=== PATIENT | male | born 1980 | race Two or more races ===

== ENCOUNTER 2020-10-19 23:13 | Emergency (ER) | payer BC, OTHER ==
[~2020-10-19] VITALS: Ht 185.4 cm; Wt 122.5 kg
[2020-10-20] MEDS ORDERED: diazePAM 5 MG TAB PO ONE ×2 (01:30→05:45)
[2020-10-20] MEDS ORDERED: LIDOCAINE 5% TOPICAL PATCH TOP ONE (04:00)
[2020-10-20] MEDS ORDERED: IBUPROFEN 800 MG TAB PO ONE (04:00)
[2020-10-20] MEDS ORDERED: HYDROcodone-ACET 10/325MG TAB PO ONE ×3 (05:45→21:45)
[2020-10-20] MEDS ORDERED: CARISOPRODOL 350 MG TAB PO ONE ×2 (11:45→17:45)
[2020-10-20] MEDS ORDERED: SODIUM CHLORIDE 0.9% 1,000 ML IV ONE (11:45)
[2020-10-20 13:34] LABS: Basophils # (auto) 0 10 ^3/uL (0-0.2); Basophils % (auto) 0.5 % (0.0-2.0); Eosinophils # (auto) 0 10 ^3/uL (0-0.8); Eosinophils % (auto) 0.2 % (0.0-7.0); Hematocrit 43.5 % (41.0-53.0); Hemoglobin 14.9 g/dL (13.5-17.5); Lymphocytes # (auto) 1.5 10 ^3/uL (0.4-5.4); Lymphocytes % (auto) 15.6 % (10.0-50.0); Mean Corpuscular Hemoglobin 28.5 pg (28.0-32.0); Mean Corpuscular Hgb Conc. 34.4 g/dL (32.0-36.0); Mean Corpuscular Volume 82.9 fL (80.0-100.0); Monocytes # (auto) 0.6 10 ^3/uL (0-1.3); Monocytes % (auto) 6.2 % (0.0-12.0); Neutrophils # (auto) 7.2 10 ^3/uL (1.6-8.6); Neutrophils % (auto) 77.5 % (37.0-80.0); Nucleated Red Blood Cells % 0.2 %; Red Blood Cells 5.25 10^6/uL (4.5-5.90); Red Cell Distribution Width 14.1 % (11.8-14.3); White Blood Cell 9.3 10^3/uL (4.4-10.8)
[2020-10-20 13:55] LABS: Albumin 3.7 g/dL (3.4-5.0); Anion Gap 6 (5-15); Blood Urea Nitrogen 9 mg/dL (7-18); Calcium 8.9 mg/dL (8.5-10.1); Carbon Dioxide 24 mmol/L (21-32); Chloride 109 mmol/L (98-107); Glucose 86 mg/dL (74-106); Sodium 139 mmol/L (136-145)
[2020-10-20 14:00] LABS: Alanine Aminotransferase 20 U/L (16-61); Alkaline Phosphatase 86 U/L (45-117); Aspartate Aminotransferase 11 U/L (15-37); BUN/Creatinine Ratio 12.3; Bilirubin, Total 0.4 mg/dL (0.2-1.0); GFR African American 153 mL/min; GFR Non-African American 126 mL/min; Total Protein 7.3 g/dL (6.4-8.2)
[2020-10-21] MEDS ORDERED: diazePAM 5 MG TAB PO ONE (02:15)
[2020-10-21 04:54] VITALS: BP 133/81
== END 2020-10-21 05:19 | disposition short-term general hospital (02) ==
LOC: ER 23:13 → EDBD 23:13 → ER 10-21 05:19
DX: M54.5 Low back pain (principal); G89.29 Other chronic pain; Z20.822 Contact with and (suspected) exposure to COVID-19
CPT/HCPCS: 36415; 71045; 72131; 80053; 84484; 85025; 87426; 96360

== ENCOUNTER 2023-05-13 10:57 | Emergency (ER) | payer BC ==
[~2023-05-13] VITALS: Ht 182.9 cm; Wt 80.0 kg
[2023-05-13 11:46] LABS: Basophils # (auto) 0 10 ^3/uL (0-0.2); Basophils % (auto) 0.7 % (0.0-2.0); Eosinophils # (auto) 0 10 ^3/uL (0-0.8); Eosinophils % (auto) 0.1 % (0.0-7.0); Hematocrit 40.6 % (41.0-53.0); Hemoglobin 13.7 g/dL (13.5-17.5); Lymphocytes # (auto) 0.6 10 ^3/uL (0.4-5.4); Lymphocytes % (auto) 18.6 % (10.0-50.0); Mean Corpuscular Hemoglobin 27.9 pg (28.0-32.0); Mean Corpuscular Hgb Conc. 33.7 g/dL (32.0-36.0); Mean Corpuscular Volume 82.9 fL (80.0-100.0); Monocytes # (auto) 0.4 10 ^3/uL (0-1.3); Monocytes % (auto) 12.5 % (0.0-12.0); Neutrophils # (auto) 2.3 10 ^3/uL (1.6-8.6); Neutrophils % (auto) 68.1 % (37.0-80.0); Nucleated Red Blood Cells % 0.6 %; Red Cell Distribution Width 13.4 % (11.8-14.3); White Blood Cell 3.3 10^3/uL (4.4-10.8)
[2023-05-13 12:02] LABS: Bilirubin, Total 0.4 mg/dL (0.2-1.0); Total Protein 6.4 g/dL (5.7-8.2)
[2023-05-13 12:52] LABS: Alanine Aminotransferase 23 U/L (7-40); Albumin 3.8 g/dL (3.2-4.8); Alkaline Phosphatase 66 U/L (46-116); Anion Gap 4 (5-15); Aspartate Aminotransferase 27 U/L (13-40); BUN/Creatinine Ratio 5.8 (10.0-20.0); Blood Urea Nitrogen 6 mg/dL (9-23); Calcium 8.8 mg/dL (8.5-10.1); Carbon Dioxide 28 mmol/L (20-30); Chloride 101 mmol/L (98-107); Glucose 107 mg/dL (74-106); Sodium 133 mmol/L (136-145)
[2023-05-13 15:03] LABS: COVID19 ANTIGEN SOFIA FIA NEGATIVE (NEGATIVE)
[2023-05-13 16:05] VITALS: BP 152/74; PULSE 95; RESP 18; O2SAT 100
[2023-05-13 16:40] LABS: Urine Bacteria NONE SEEN /hpf (None Seen); Urine Blood Negative /uL (Negative); Urine Clarity Clear (Clear); Urine Color Yellow (Yellow); Urine Protein, UAD 1+ (Negative); Urine Specific Gravity 1.023 (1.001-1.035); Urine Urobilinogen Normal (Negative); Urine WBC 2 /hpf (0 - 3); Urine pH 6.5 (5.0-8.0)
== END 2023-05-13 16:09 | disposition home or self-care (01) ==
LOC: ER 10:57
DX: R42 Dizziness and giddiness (principal); Z20.822 Contact with and (suspected) exposure to COVID-19
CPT/HCPCS: 36415; 70450; 80053; 81001; 82962; 85025; 87426; 93005

== ENCOUNTER 2023-09-19 16:49 | Emergency (ER) | payer BC ==
[~2023-09-19] VITALS: Ht 182.9 cm; Wt 125.1 kg
[2023-09-19 17:30] VITALS: PULSE 79; RESP 14; O2SAT 98
[2023-09-19] MEDS: SODIUM CHLORIDE 0.9% 1,000 ML IVB ONE (17:36)
[2023-09-19] MEDS: LORazepam 2MG/ML-1ML VIAL IV ONE (17:37)
[2023-09-19 17:59] LABS: Basophils # (auto) 0 10 ^3/uL (0-0.2); Basophils % (auto) 0.4 % (0.0-2.0); Eosinophils # (auto) 0.1 10 ^3/uL (0-0.8); Eosinophils % (auto) 0.8 % (0.0-7.0); Hematocrit 39.7 % (41.0-53.0); Lymphocytes # (auto) 1.9 10 ^3/uL (0.4-5.4); Lymphocytes % (auto) 25.3 % (10.0-50.0); Mean Corpuscular Hemoglobin 28.8 pg (28.0-32.0); Mean Corpuscular Hgb Conc. 35.3 g/dL (32.0-36.0); Mean Corpuscular Volume 81.7 fL (80.0-100.0); Monocytes # (auto) 0.4 10 ^3/uL (0-1.3); Monocytes % (auto) 5.9 % (0.0-12.0); Neutrophils # (auto) 5.1 10 ^3/uL (1.6-8.6); Neutrophils % (auto) 67.6 % (37.0-80.0); Nucleated Red Blood Cells % 0.1 %; Red Blood Cells 4.86 10^6/uL (4.5-5.90); Red Cell Distribution Width 13.4 % (11.8-14.3); White Blood Cell 7.5 10^3/uL (4.4-10.8)
[2023-09-19 18:11] LABS: Acetaminophen < 2.0 UG/ML (10.0-20.0)
[2023-09-19 18:12] LABS: Alanine Aminotransferase 19 U/L (7-40); Albumin 4.3 g/dL (3.2-4.8); Alkaline Phosphatase 88 U/L (46-116); Anion Gap 7 (5-15); Aspartate Aminotransferase 14 U/L (13-40); BUN/Creatinine Ratio 13.3 (10.0-20.0); Bilirubin, Total 0.4 mg/dL (0.2-1.0); Blood Alcohol < 3.0 mg/dL (<10); Blood Urea Nitrogen 14 mg/dL (9-23); Calcium 9.6 mg/dL (8.7-10.4); Carbon Dioxide 27 mmol/L (20-30); Chloride 105 mmol/L (98-107); Glucose 105 mg/dL (74-106); Potassium 3.5 mmol/L (3.5-5.1); Sodium 139 mmol/L (136-145); Total Protein 6.8 g/dL (5.7-8.2)
[2023-09-19 18:40] LABS: Salicylate < 3.0 mg/dL (2.8-20.0)
[2023-09-19 19:30] VITALS: PULSE 75; RESP 10; TEMP 98.5; O2SAT 96
[2023-09-19 19:44] LABS: Amphetamine Screen, Urine Neg (NEGATIVE); Barbiturate Scree,Urine Neg (NEGATIVE); Benzodiazephine Screen, Urine Neg (NEGATIVE)
[2023-09-19 19:45] LABS: Cannabinoid Screen, Urine Neg (NEGATIVE); Cocaine Screen, Urine Neg (NEGATIVE); Opiate Scree,Urine Neg (NEGATIVE); Phencyclidine Screen, Urine Neg (NEGATIVE)
[2023-09-19 20:00] VITALS: BP 129/83; PULSE 76; RESP 14; O2SAT 93
== END 2023-09-19 20:31 | disposition home or self-care (01) ==
LOC: ER 16:49
DX: R42 Dizziness and giddiness (principal); T40.2X5A Adverse effect of other opioids, initial encounter; Y92.89 Other specified places as the place of occurrence of the external cause
CPT/HCPCS: 36415; 71045; 80053; 80307; 80320; 80329; 85025; 96360; 99284; J7030

== ENCOUNTER 2025-01-06 08:02 | Emergency (ER) | payer BC ==
[~2025-01-06] VITALS: Ht 182.9 cm; Wt 115.6 kg
--- NOTE | 2025-01-06 08:26 | ED.PDOC ---
GI ASSESSMENT HPI Comments This is a 44 year old male presenting to the ED with chief complaint of N/V. Patient reports that he has been experiencing persistent nausea with associated vomiting, body aches, and chills since Friday. Patient relays that he has been feeling dehydrated. Patient denies any sick contacts, abdominal pain, dizziness, fever, chills, chest pain, or diarrhea. Chief Complaint: Nausea/Vomiting Time Seen by MD: 08:24 Primary Care Provider: TOSHA Aguilar Notes: Nurses Notes, Medications, Allergies Allergies: Coded Allergies: NO KNOWN ALLERGIES (Unverified , 10/19/20) Information Source: Patient Mode of Arrival: Ambulatory Timing: Days Duration: Since onset Prehospital treatment: None Quality: Aching Vomitus: Watery Stool: Normal Severity: Moderate Recent: None Recent Hx of: None Associated sign and symptoms: Nausea, Vomiting Past Medical History PAST MEDICAL HISTORY: Denies Surgical History (Other): Back Surgery Family History Family History: Reviewed,noncontributory to illness Social History Smoker: Non-Smoker Alcohol: Denies ETOH Use Drugs: Marijuana Lives In: Home Constitutional: reports: chills, malaise; denies: diaphoresis, fatigue, fever, sweats, weakness, others EENTM: denies: blurred vision, double vision, ear bleeding, ear discharge, ear drainage, ear pain, ear ringing, eye pain, eye redness, hearing loss, mouth pain, mouth swelling, nasal discharge, nose bleeding, nose congestion, nose pain, photophobia, tearing, throat pain, throat swelling, voice changes, others Respiratory: denies: cough, hemoptysis, orthopnea, SOB at rest, shortness of breath, SOB with excertion, stridor, wheezing, others Cardiovascular: denies: chest pain, dizzy spells, diaphoresis, Dyspnea on exertion, edema, irregular heart beat, left arm pain, lightheadedness, palpitations, PND, syncope, others Gastrointestinal: reports: nausea, vomiting; denies: abdomen distended, abdominal pain, blood streaked bowels, constipated, diarrhea, dysphagia, difficulty swallowing, hematemesis, melena, poor appetite, poor fluid intake, rectal bleeding, rectal pain, others Genitourinary: denies: burning, dysuria, flank pain, frequency, hematuria, incontinence, penile discharge, penile sore, pain, testicle pain, testicle swelling, urgency, others Neurological: denies: dizziness, fainting, headache, left sided numbness, left sided weakness, numbness, paresthesia, pre-existing deficit, right sided numbness, right sided weakness, seizure, speech problems, tingling, tremors, weakness, others Musculoskeletal: denies: back pain, gout, joint pain, joint swelling, muscle pain, muscle stiffness, neck pain, others Integumetry: denies: bruises, change in color, change in hair/nails, dryness, laceration, lesions, lumps, rash, wounds, others Allergic/Immunocompromised: denies: Difficulty Healing, Frequent Infections, Hives, Itching, others Hematologic/Lymphatic: denies: anemia, blood clots, easy bleeding, easy bruising, swollen glands, others Endocrine: denies: excessive hunger, excessive sweating, excessive thirst, excessive urination, flushing, intolerance to cold, intolerance to heat, unexplained weight gain, unexplained weight loss, others Psychiatric: denies: anxiety, bipolar disorder, depression, hopeless, panic disorder, schizophrenia, sleepless, suicidal, others All Other Systems: Reviewed and Negative Physical Exam General Appearance: Mild Distress HEENT: Normal ENT Inspection, Pharynx Normal, TMs Normal Neck: Full Range of Motion, Non-Tender, Normal, Normal Inspection Respiratory: Chest Non-Tender, Lungs Clear, No Accessory Muscle Use, No Respiratory Distress, Normal Breath Sounds Cardiovascular: No Edema, No JVD, No Murmur, No Gallop, Normal Peripheral Pulses, Regular Rate/Rhythm Breast Exam: Deferred Gastrointestinal: No Organomegaly, Non Tender, No Pulsatile Mass, Normal Bowel Sounds, Soft Genitalia: Deferred Pelvic: Deferred Rectal: Deferred Extremities: No calf tenderness, Normal capillary refill, Normal inspection, Normal range of motion, Non-tender, No pedal edema Musculoskeletal : Apperance: Normal Neurologic: Alert, billing services manager II-XII nml as Tested, No Motor Deficits, Normal Affect, Normal Mood, No Sensory Deficits Cerebellar Function: Normal Reflexes: Normal Skin: Dry, Normal Color, Warm Lymphatic: No Adenopathy Was a procedure done? Was a procedure done?: No GI differential Dx Differential Diagnosis: Gastritis/PUD, Gastroenteritis, Inflammatory BD, Panc reatitis, Electrolyte Imbalance, Food Poisoning X-Ray, Labs, Meds, VS Vital Signs Date Time Temp Pulse Resp B/P (MAP) Pulse Ox O2 Delivery O2 Flow Rate FiO2 01/06/25 14:38 98.0 78 16 145/99 (114) 100 98.0 01/06/25 10:38 98.0 66 17 149/96 (113) 98 98.0 01/06/25 10:38 66 17 98 Room Air 01/06/25 08:04 98.0 99 18 124/74 98 98.0 Lab Test 01/06/25 14:43 01/06/25 14:21 01/06/25 10:19 Range/Units SARS-CoV-2 Antigen (Rapid) Negative NEGATIVE Urine Color Yellow Yellow Urine Clarity Clear Clear Urine pH 5.5 5.0-9.0 Urine Specific [place] 1.033 1.001-1.035 Urine Protein 1+ H Negative Urine Ketones 4+ H Negative Urine Blood Negative Negative /uL Urine Nitrite Negative Negative Urine Bilirubin 1+ Negative Urine Urobilinogen 3 H Negative mg/dL Urine Leukocyte Esterase Negative Negative /uL Urine RBC 1 0 - 3 /hpf Urine Microscopic WBC 1 0-3 /HPF Urine Squamous Epithelial Cells Few <5 /hpf Urine Bacteria None seen None Seen /hpf Urine Mucus Few None Seen Urine Glucose Normal Normal mg/dL White Blood Count 14.0 H 4.4-10.8 10^3/uL Red Blood Count 5.94 H 4.5-5.90 10^6/uL Hemoglobin 16.8 13.5-17.5 g/dL Hematocrit 48.3 41.0-53.0 % Mean Corpuscular Volume 81.4 80.0-100.0 fL Mean Corpuscular Hemoglobin 28.2 28.0-32.0 pg Mean Corpuscular Hemoglobin Concent 34.7 32.0-36.0 g/dL Red Cell Distribution Width 13.7 11.8-14.3 % Platelet Count 298 140-450 10^3/uL Mean Platelet Volume 9.5 6.9-10.8 fL Neutrophils (%) (Auto) 84.7 H 37.0-80.0 % Lymphocytes (%) (Auto) 9.7 L 10.0-50.0 % Monocytes (%) (Auto) 5.5 0.0-12.0 % Eosinophils (%) (Auto) 0.0 0.0-7.0 % Basophils (%) (Auto) 0.1 0.0-2.0 % Neutrophils # (Auto) 11.9 H 1.6-8.6 10 ^3/uL Lymphocytes # (Auto) 1.4 0.4-5.4 10 ^3/uL Monocytes # (Auto) 0.8 0-1.3 10 ^3/uL Eosinophils # (Auto) 0 0-0.8 10 ^3/uL Basophils # (Auto) 0 0-0.2 10 ^3/uL Nucleated Red Blood Cells 0.8 % Sodium Level 142 136-145 mmol/L Potassium Level 3.9 3.5-5.1 mmol/L Chloride Level 104 98-107 mmol/L Carbon Dioxide Level 18 L 20-31 mmol/L Anion Gap 20 H 5-15 Blood Urea Nitrogen 12 9-23 mg/dL Creatinine 1.28 0.700-1.30 mg/dL Glomerular Filtration Rate Calc 71 >90 mL/min BUN/Creatinine Ratio 9.4 L 10.0-20.0 Serum Glucose 123 H 74-106 mg/dL Calcium Level 10.0 8.7-10.4 mg/dL Current Medications Medications (Trade) Dose Ordered Sig/Aiden Route Start Time Stop Time Status Last Admin Sodium Chloride 1,000 ml @ 1,000 mls/hr Q1H ONCE IV 01/06/25 08:30 01/06/25 09:29 DC 01/06/25 08:30 Ondansetron HCl (Zofran) 4 mg ONCE ONCE IV 01/06/25 08:30 01/06/25 08:31 DC 01/06/25 10:57 Chest XR indicates: Subtle opacity in the left lower lobe may represent atelectasis or early/ developing pneumonia. The patient had an IV Hep-Lock The patient was given a 1 L bolus of normal saline The patient was given Zofran 4 mg IV push The patient has had a CBC [place] [address] The CBC and chemistry panel is within normal limits with a CO2 level of 18 The urine test is negative for any infection At this time, the patient is being discharged Images Reviewed?: Images reviewed and evaluated by me Time of 1ST Reevaluation: 09:23 Reevaluation 1ST: Unchanged Patient Education/Counseling: Diagnosis, Treatment, Prognosis, Need For Follow Up Family Education/Counseling: No Family Present SEPSIS Sepsis Screen Date sepsis recognized/suspect: Jan 06, 2025 Time Sepsis recognized/suspect: 0806 Recent Procedure: No On Antibiotic Therapy: No Respiratory Rate >20: No Heart Rate >90: Yes Temp<36 C (96.8 F) or >38.3 C: No SBP <90 or MAP <65 mmHG: No New Acute Mental Status Change: No Is the patient on CPAP, BIPAP,: No Physician Orders Chest Two Views Routine (01/06/25 08:18) Heplock Iv (01/06/25 08:18) Vital Signs Date Time Temp Pulse Resp B/P (MAP) Pulse Ox O2 Delivery O2 Flow Rate FiO2 01/06/25 14:38 98.0 78 16 145/99 (114) 100 98.0 01/06/25 10:38 98.0 66 17 149/96 (113) 98 98.0 01/06/25 10:38 66 17 98 Room Air 01/06/25 08:04 98.0 99 18 124/74 98 98.0 Laboratory Tests Test 01/06/25 10:19 White Blood Count 14.0 10^3/uL (4.4-10.8) H Medications Medications Dose Ordered Sig/Aiden Route Start Time Stop Time Status Last Admin Dose Admin Ondansetron HCl 4 mg ONCE ONCE IV 01/06/25 08:30 01/06/25 08:31 DC 01/06/25 10:57 Sodium Chloride 1,000 ml @ 1,000 mls/hr Q1H ONCE IV 01/06/25 08:30 01/06/25 09:29 DC 01/06/25 08:30 Departure 1 Departure Time of Disposition: 16:43 Impression: Primary Impression: Generalized weakness Additional Impression: Viral syndrome Disposition: 07 LEFT AWOL/ELOPED Condition: Fair Discharged With: Self Critical Care Note Critical Care Time?: No Stability Stability form required: No Heart Score Heart Score: Heart Score Response (Comments) Value History N/A 0 EKG N/A 0 Age N/A 0 Risk Factors N/A 0 Troponin N/A 0 Total 0 I personally scribed for ARMANDO ECKERT MD ([email or web address]) on 01/06/25 at 08:26. Electronically submitted by Jaguar Perez ([email or web address]). I personally scribed for ARMANDO ECKERT MD ([email or web address]) on 01/06/25 at 09:21. Electronically submitted by Jaguar Perez ([email or web address]). ARMANDO ECKERT MD Jan 06, 2025 08:26
[2025-01-06] MEDS: SODIUM CHLORIDE 0.9% 1,000 ML IV ONE (08:30)
--- NOTE | 2025-01-06 08:52 | DVH ---
CHEST RADIOGRAPH Indication: weakness and sob Technique: Frontal and lateral view of the chest was obtained Comparison: XY CHEST PORTABLE on DOS: 09/19/23, CHEST PORTABLE on DOS: 10/20/20 FINDINGS: Lines and Tubes: None Lungs: Subtle opacity in the left lower lobe. Pleura: No effusion. No pneumothorax. Cardiomediastinal contours: Unremarkable Bones: Unremarkable IMPRESSION: Subtle opacity in the left lower lobe may represent atelectasis or early/ developing pneumonia.
[2025-01-06] MEDS: ONDANSETRON HCL 4 MG/2 ML VIAL IV ONE (10:57)
[2025-01-06 11:01] LABS: Hematocrit 48.3 % (41.0-53.0); Hemoglobin 16.8 g/dL (13.5-17.5); Mean Corpuscular Hemoglobin 28.2 pg (28.0-32.0); Mean Corpuscular Volume 81.4 fL (80.0-100.0); Nucleated Red Blood Cells % 0.8 %
[2025-01-06 11:07] LABS: Chloride 104 mmol/L (98-107); Potassium 3.9 mmol/L (3.5-5.1); Sodium 142 mmol/L (136-145)
[2025-01-06 11:08] LABS: Anion Gap 20 (5-15); Calcium 10.0 mg/dL (8.7-10.4)
[2025-01-06 11:13] LABS: BUN/Creatinine Ratio 9.4 (10.0-20.0); Blood Urea Nitrogen 12 mg/dL (9-23)
[2025-01-06 11:16] LABS: Carbon Dioxide 18 mmol/L (20-31); Glucose 123 mg/dL (74-106)
[2025-01-06 14:38] VITALS: BP 145/99; PULSE 78; RESP 16; TEMP 98; O2SAT 100
[2025-01-06 14:52] LABS: Urine Protein, UAD 1+ (Negative)
[2025-01-06 15:20] LABS: COVID19 ANTIGEN SOFIA FIA NEGATIVE (NEGATIVE)
== END 2025-01-06 16:31 | disposition home or self-care (01) ==
LOC: ER 08:02
DX: B34.9 Viral infection, unspecified (principal); R53.1 Weakness; Z79.899 Other long term (current) drug therapy; Z20.822 Contact with and (suspected) exposure to COVID-19
CPT/HCPCS: 36415; 71046; 80048; 81001; 85025; 87426; 96361; 96374; 99284; J2405; J7030